=== PATIENT | female | born 1985 | race Caucasian/White ===

== ENCOUNTER 2022-10-10 13:48 | Inpatient (IN) ==
[2022-10-10] MEDS ORDERED: OXYTOCIN 30 UNITS/500 ML BAG IV PRN ×2 (14:06→17:58)
[2022-10-10] MEDS ORDERED: LIDOCAINE 1% LOCAL 20 ML VIAL INFIL PRN (14:06)
--- NOTE | 2022-10-10 14:13 | History & Physical Report ---
Date of Service October 10, 2022 Assessment & Plan (1) Spontaneous onset of labor: Plan Patient present in spontaneous labor. Epidural. Expect . Continue to monitor. History of Present Illness Chief Complaint: Labor Primary Care Provider: NO PCP 37 y/o female at 37 2/7 here in labor after being found to be 5 cm dilated in office with contractions. She is O+, rubella immune, GBS neg. c/b AMA. Allergies Allergy/AdvReac Type Severity Reaction Status Date / Time No Known Allergies Allergy Verified 10/10/22 16:01 Home Medications Medication Instructions Recorded Confirmed Type prenat.vits,rom,vkm-bois-ptoaq 1 tab PO DAILY 03/11/22 10/10/22 History breast pump #1 ea 08/22/22 10/10/22 Rx Patient History Medical History (Updated 10/10/22 @ 14:16 by Sandra Cline MD) Elbow fracture with surgery History of chicken pox Surgical History (Updated 03/11/22 @ 09:44 by Asha Walls) S/P ACL repair right S/P wisdom tooth extraction Family History (Updated 03/11/22 @ 09:46 by Asha Walls) Mother Lung cancer Sister Congenital malrotation Denies family history of Ovarian cancer Breast cancer Colorectal cancer Social History Smoking Status: Never smoker Second Hand Exposure: No; Do You Dip or Chew Tobacco: No; Tobacco Cessation Education Requested by Patient: No Hx Alcohol Use: No Hx Substance Use: No Cook Station Required: No marital status: marital status details: Shlomo Zheng (38) [phone] Current Living Situation: Spouse Current Living Situation Comment: lives with spouse, no pets current occupational status: employed 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 See attending attestation for further information Results & Data ([facility]) Vital Signs (Past 12 Hours) Vital Signs Temp Pulse BP 10/10/22 13:56 36.9 C 10/10/22 13:54 64 108/67 Supervising Physician Co-Signing Physician Notes Resident Physician Supervision Note: I interviewed and examined the patient. Discussed with Dr. Venegas and agree with findings and plan as documented in the note. Any exceptions or clarifications are listed here: [None] Documented By: Saima Gallagher MD, FACOG Resident Activity Tracking Resident Involvement: Resident Care Provided Care Provided: OB Delivery
[2022-10-10] MEDS: LACTATED RINGER'S 1,000 ML IV PRN ×2 (14:27→16:24)
[2022-10-10] MEDS ORDERED: fentaNYL citrate 100 MCG/2 ML VIAL ONE (14:29)
[2022-10-10] MEDS ORDERED: ePHEDrine sulfate 50 MG/ML AMP ONE (14:29)
[2022-10-10] MEDS ORDERED: LIDOCAINE 2%/EPINEPHRINE 1:200,000 20 ML SDV ONE (14:29)
[2022-10-10] MEDS ORDERED: SODIUM CHLORIDE 0.9% INJ 10 ML VIAL ONE (14:29)
[2022-10-10] MEDS ORDERED: BUPIVACAINE 0.25% 30 ML VIAL ONE (14:29)
[2022-10-10] MEDS ORDERED: fentaNYL 2MCG/ML ROPIVACAINE 1.25MG/ML 100 ML BAG EPI ONE (14:30)
[2022-10-10 14:38] LABS: Hematocrit (blood only) 36.9 % (34.1-44.9); Hemoglobin 12.4 g/dl (12.0-16.0); Mean Corpuscular Hemoglobin 30.5 pg (25.0-34.0); Mean Corpuscular Hgb Conc 33.6 g/dL (32.0-36.0); Mean Corpuscular Volume 90.9 fL (80.0-100.0); Platelet Count 195 K/uL (130-400); RDW Coefficient of Variation 13.4 % (11.5-14.5); RDW Standard Deviation 44.8 fL (36.4-46.3); Red Blood Count 4.06 M/uL (3.93-5.22); White Blood Count 8.85 K/ul (4.8-10.8)
[2022-10-10] MEDS ORDERED: fentaNYL 2MCG/ML ROPIVACAINE 1.25MG/ML 100 ML BAG EPI PRN (14:48)
[2022-10-10] MEDS ORDERED: ePHEDrine sulfate 50 MG/ML AMP IV PRN (14:48)
[2022-10-10] MEDS ORDERED: NALBUPHINE HCL INJ 10 MG/ML AMP IV PRN (14:48)
[2022-10-10] MEDS ORDERED: NALOXONE HCL 1 MG in SODIUM CHLORIDE 0.9% 1000ML 1,000 ML IV PRN (14:48)
[2022-10-10] MEDS ORDERED: ONDANSETRON INJ 2 MG/ML 2 ML VIAL IV PRN (14:48)
[2022-10-10] MEDS ORDERED: diphenhydrAMINE 50 MG/ML VIAL IV PRN (14:48)
[2022-10-10] MEDS ORDERED: NALOXONE HCL 0.4 MG/1 ML VIAL/CARP IV PRN (14:48)
--- NOTE | 2022-10-10 14:52 | Anesthesiology Consultation ---
Date of Service October 10, 2022 Assessment & Plan Chart Review Chart Review: Patient NOT seen in Pre Admission Testing and Acceptable Risk for Labor Epidural Consults Requested none ASA ASA2 Proposed Anesthesia Anesthesia Type: Labor Epidural and CSE Risk / Benefits Reviewed With: PT / POA / Parent / Guardian, Accepts Plan and Informed Consent Obtained History Height/Weight Height: 5 ft 2 in Weight: 68.492 kg Allergies Allergy/AdvReac Type Severity Reaction Status Date / Time No Known Allergies Allergy Verified 10/04/22 13:14 Medications Home Medications Medication Instructions Recorded Confirmed Last Taken prenat.vits,rom,ocy-agdt-ydfex 1 tab PO DAILY 03/11/22 10/04/22 Unknown breast pump #1 ea 08/22/22 10/04/22 Unknown NPO Date Last Intake of Fluids: 10/10/22 Time Last Intake of Fluids: 12:00 Date Last Intake of Solids: 10/10/22 Time Last Intake of Solids: 11:00 Past Medical History Medical History (Updated 10/10/22 @ 14:16 by Sandra Cline MD) Elbow fracture with surgery History of chicken pox Exercise / Class Metabolic Activity II 4-5 Yardwork/Stairs/Walk up hill Past Family History Family History (Updated 03/11/22 @ 09:46 by Asha Walls) Mother Lung cancer Sister Congenital malrotation Denies family history of Ovarian cancer Breast cancer Colorectal cancer Past Surgical History Surgical History (Updated 03/11/22 @ 09:44 by Asha Walls) S/P ACL repair right S/P wisdom tooth extraction Past Anesthesia History No Hx of Anesthesia Complications and No Family Hx of Anesthesia Complications History of PONV No Hx of PONV and No Hx of Motion Sickness Social History Smoking Status: Never smoker Do You Dip or Chew Tobacco: No Hx Alcohol Use: No Hx Substance Use: No Review of Systems no chest pain or sob Physical Exam Vital Signs Last Vital Signs Temp 36.9 C 10/10/22 13:56 Pulse 66 10/10/22 14:44 BP 108/67 10/10/22 13:54 Pulse Ox 97 10/10/22 14:44 ENMT Mouth: no TMJ abnormality Thyromental Distance: > or= 3.5 Finger Breadths Mallampati Class: II Neck normal visual inspection Respiratory normal respiratory effort Auscultation: lungs clear to auscultation bilaterally Cardiovascular Rate/Rhythm: regular rate and regular rhythm Musculoskeletal Spine: normal cervical ROM Neurologic moves all extremities Psychiatric Orientation: alert and oriented x 3 Testing Laboratory Results 10/10/22 14:12
--- NOTE | 2022-10-10 17:55 | Delivery Summary ---
Vaginal Delivery Summary Date of Service October 10, 2022 Patient presented in spontaneous labor at 37 weeks and 2 days group B strep neg ative COVID-negative she was initially 5 cm requested epidural and received it after this rupture membranes at 7 cm she rapidly progressed to fully dilated and then pushed a baby in occiput anterior position successfully delivering the head mouth and then nares were suctioned no nuchal cord gentle traction the baby no excessive force live vigorous male cord clamped and cut cord blood obtain ed placenta removed with gentle traction IV Pitocin started uterine tone improved first-degree tear repaired and a small right periclitoral tear repaired urethra was patent at the end of procedure sponge and instrument counts correct estimated blood loss 250 mL
[2022-10-10] MEDS ORDERED: DIPHTHERIA/TETANUS/PERTUSSIS 0.5 ML SYR/VIAL IM ONE (17:58)
[2022-10-10] MEDS ORDERED: oxyCODONE/ACETAMINOPHEN 5mg/325mg TAB PO PRN (17:58)
[2022-10-10] MEDS ORDERED: bisacodyL 10 MG SUPP PR PRN (17:58)
[2022-10-10] MEDS ORDERED: HYDROCORTISONE ACETATE 25 MG SUPP PR PRN (17:58)
[2022-10-10] MEDS ORDERED: BENZOCAINE 20% AER SPR 82.5 GM CAN EXT PRN (17:58)
[2022-10-10] MEDS ORDERED: ACETAMINOPHEN 325 MG TAB PO PRN (17:58)
--- NOTE | 2022-10-10 19:10 | Anesthesia Procedure Note ---
Date of Service October 10, 2022 Anesthesia Post Epidural Note Vital Signs Vital Signs: Temp Pulse Resp BP Pulse Ox 37.3 C 66 16 106/58 L 97 10/10/22 17:51 10/10/22 18:41 10/10/22 16:25 10/10/22 18:41 10/10/22 17:29 Notes Mental Status: alert / awake / arousable and participated in evaluation Nausea / Vomiting: adequately controlled Pain: adequately controlled Airway Patency, RR, SpO2: stable & adequate BP & HR: stable & adequate Hydration State: stable & adequate Neuraxial Anesthesia: was administered and sensory block is resolving Anesthetic Complications: no major complications apparent and Pt Satisfied with anesthetic care Epidural: Removed without complications and With tip intact
[2022-10-10] MEDS: IBUPROFEN 600 MG TAB PO PRN (19:25)
[2022-10-10] MEDS: DOCUSATE SODIUM 100 MG CAP PO SCH (22:28)
[2022-10-11] MEDS: IBUPROFEN 600 MG TAB PO PRN ×3 (00:42→19:56)
[2022-10-11 06:30] LABS: Hematocrit (blood only) 32.8 % (34.1-44.9); Hemoglobin 11.1 g/dl (12.0-16.0); Mean Corpuscular Hemoglobin 30.6 pg (25.0-34.0); Mean Corpuscular Hgb Conc 33.8 g/dL (32.0-36.0); Mean Corpuscular Volume 90.4 fL (80.0-100.0); Mean Platelet Volume 10.1 fL (9.4-12.3); Platelet Count 174 K/uL (130-400); RDW Coefficient of Variation 13.5 % (11.5-14.5); RDW Standard Deviation 44.2 fL (36.4-46.3); Red Blood Count 3.63 M/uL (3.93-5.22); White Blood Count 10.93 K/ul (4.8-10.8)
--- NOTE | 2022-10-11 07:46 | Obstetrical Progress Note ---
Date of Service October 11, 2022 Assessment & Plan (1) Spontaneous onset of labor: day #1 patient is doing well she is ambulating tolerating oral diet she has no extremity pain bleeding is minimal questions answered she will continue working on breast-feeding we will continue current care Subjective Ambulation: ambulating normally Voiding: no voiding problems Passing Gas:: Yes Diet Tolerance:: regular diet Physical Exam Constitutional WD/WN, vitals as above well developed and well nourished Respiratory normal respiratory effort, lungs clear to auscultation normal respiratory effort Cardiovascular RRR, no murmur, no edema Gastrointestinal (Abdomen) normal bowel sounds, soft, nontender, no hepatosplenomegaly Results & Data ([facility]) Vital Signs (Past 12 Hours) Vital Signs Temp Pulse Pulse Resp BP BP Pulse Ox 10/11/22 04:40 99.3 F 71 16 110/68 98 10/11/22 00:40 98.2 F 78 15 105/66 97 10/10/22 21:00 98.1 F 79 16 101/63 98 10/10/22 20:30 98.4 F 18 10/10/22 19:55 86 10/10/22 19:55 107/59 L O2 Del Method 10/11/22 04:40 Room Air 10/11/22 00:40 Room Air 10/10/22 21:00 Room Air 10/10/22 20:30 10/10/22 19:55 10/10/22 19:55
[2022-10-11] MEDS: PRENATAL VITAMIN 1 TAB PO SCH (08:33)
[2022-10-11] MEDS: DOCUSATE SODIUM 100 MG CAP PO SCH ×2 (08:33→21:02)
[2022-10-11] MEDS ORDERED: bisacodyL 5 MG TABEC PO SCH (20:00)
--- NOTE | 2022-10-12 06:42 | Obstetrical Progress Note ---
Date of Service October 12, 2022 Assessment & Plan (1) Spontaneous onset of labor: D/C home today, instructions reviewed, all questions answered. Normal recovery after vaginal delivery. Subjective Ambulation: ambulating normally Voiding: no voiding problems Passing Gas:: Yes Diet Tolerance:: regular diet Lochia:: Small Feeding Type:: breast feeding Physical Exam Constitutional WD/WN, vitals as above Eyes PERRL, conjunctivae normal, anicteric sclerae Neck normal visual inspection Respiratory normal respiratory effort and able to speak in complete sentences; no respiratory distress and no labored breathing Cardiovascular Rate/Rhythm: regular rate and regular rhythm Extremities: no edema Chest (Breasts) Chest: normal inspection of chest Gastrointestinal (Abdomen) Inspection/Auscultation: abdomen normal to inspection Soft, postgravid Psychiatric A+Ox3, euthymic affect Genitourinary OB Exam Abdomen: + fundal height Fundus: + firm and + relation to umbilicus (fundus just below umbilicus); not tender Results & Data ([facility]) Vital Signs (Past 12 Hours) Vital Signs Temp Pulse Resp BP Pulse Ox O2 Del Method 10/12/22 00:45 98.4 F 72 18 98/62 L 97 Room Air 10/11/22 19:55 98.6 F 85 18 108/69 97 Room Air
[2022-10-12] MEDS: DOCUSATE SODIUM 100 MG CAP PO SCH (08:02)
[2022-10-12] MEDS: PRENATAL VITAMIN 1 TAB PO SCH (08:02)
[2022-10-12] MEDS ORDERED: MEASLES, MUMPS & RUBELLA VIRUS VIAL SQ ONE (11:10)
== END 2022-10-12 12:30 | disposition home or self-care (01) | DRG 807 ==
LOC: OPB 13:48 → 4S1 13:49 → 4E2 20:30